=== PATIENT | male | born 1970 | race Caucasian/White ===

== ENCOUNTER 2024-12-16 13:12 | Day surgery (SDC) | payer BC ==
--- NOTE | 2024-12-09 10:18 | ELECTROCARDIOGRAPH REPORT ---
[facility] Test Date: 2024-12-09 Test Time: 10:16:42 Pat Name: FORD TRAMMELL Department: PSYCHIATRIC-PRE-OP Room: Gender: M [employer] Director: : 1970 Requested By: BLADIMIR MARIN Order Number: [id number] Reading MD: Dr. SANDRA Oconnor Measurements Intervals [place] Rate: 68 P: 72 MA: 217 QRS: -38 QRSD: 142 T: 58 QT: 424 QTc: 451 Interpretive Statements Sinus rhythm Prolonged MA interval Right bundle branch block Baseline wander in lead(s) V1,V2 Electronically Signed On 12-09-2024 18:20:[address] SANDRA Oconnor Please click the below link to view image of tracing.
[2024-12-09 10:19] LABS: MEAN PLATELET VOLUME 6.9 FL (7.4-10.4); RED CELL DISTRIBUTION WIDTH 12.6 % (11.5-14.5)
[2024-12-09 10:36] LABS: CREATININE 1.33 MG/DL (0.60-1.10); TOTAL CARBON DIOXIDE 31.8 MMOL/L (24-32); eGFR 56 ML/MIN
[~2024-12-16] VITALS: Ht 180.3 cm; Wt 86.7 kg
[2024-12-16] VITALS (18 sets, daily range): BP systolic 92–126; BP diastolic 64–90; PULSE 55–78; RESP 11–17; TEMP 97.4; O2SAT 16–99
[~2024-12-16 13:12] MED LIST: BUPIVAcaine/PF 2.5mg/ml (0.25%) 10ml vial ONE; LIDOcaine 1% 30ml preserv. free vial ONE; NO HOME MEDS
[2024-12-16] MEDS: gentamicin inj 400 MG in normal saline 100ml IV soln 90 ML IV ONE (14:10)
[2024-12-16] MEDS: ringers solution, lacted 1,000 ML IV SCH (14:10)
[2024-12-16] MEDS: clindamycin-Cleocin 900mg/D5W 50 ML IV ONE (14:10)
[2024-12-16] MEDS ORDERED: fentaNYL/PF 50MCG/1 ML 2ML syringe ONE (16:24)
[2024-12-16] MEDS ORDERED: midazolam 1 mg/ML 2ml injection ONE (16:24)
[2024-12-16] MEDS ORDERED: propofol inj 20 ML IV ONE (16:25)
[2024-12-16] MEDS ORDERED: rocuronium 10mg/ml inj IV ONE (16:25)
[2024-12-16] MEDS ORDERED: ondansetron/PF 4mg/2ml inj IV PRN (16:55)
[2024-12-16] MEDS ORDERED: hydrALAZINE 20mg/ml inj. IV PRN ×2 (16:55→17:00)
[2024-12-16] MEDS ORDERED: HYDROmorphone/PF 0.2 MG/ML SYRINGE IV PRN ×2 (16:55)
[2024-12-16] MEDS ORDERED: ringers solution, lacted 1,000 ML IV SCH ×2 (16:55→17:00)
[2024-12-16] MEDS ORDERED: labetalol 20mg/4ml (5mg/ml) syringe IV PRN ×2 (16:55→17:00)
[2024-12-16] MEDS ORDERED: acetaminophen 1,000mg/100ml IV 100 ML IV PRN (16:55)
[2024-12-16] MEDS ORDERED: morphine 4 MG/ML inj SYRINge IV PRN ×4 (16:55→17:00)
[2024-12-16] MEDS ORDERED: ondansetron/PF 4mg/2ml inj ONE (17:21)
[2024-12-16] MEDS ORDERED: dexamethasone sod phosphate 4mg/ml inj. ONE (17:22)
[2024-12-16] MEDS ORDERED: glycopyrrolate 0.2mg/ml inj ONE (17:32)
[2024-12-16] MEDS: ondansetron/PF 4mg/2ml inj IV PRN (17:48)
--- NOTE | 2024-12-16 17:50 | OPERATIVE REPORT ---
Operative Report Providers to CC CC: RODRIGUEZ MARIN MD ~ Date of Procedure: Dec 16, 2024 Pre-Operative Diagnosis: Umbilical hernia, right inguinal hernia Post-Operative Diagnosis SAME as PRE-Op Procedure Performed 1 cm umbilical hernia repair Robotic assisted, laparoscopic right inguinal hernia repair with mesh Surgeon: Rodriguez Marin MD FACS Retaining Room Cutter None Anesthesiologist: Parveen Devries Type of Anesthesia: General Findings: Fairly large indirect right inguinal hernia 1 cm umbilical hernia Wound class I Complications None Prosthetics\Implants used: Extra-large right Dextile mesh Estimated Blood Loss: Minimal Specimen Removed: None Description of Procedure: Patient was brought to the operating room and identified by the nursing staff and the attending physician. Patient was placed supine and general anesthesia was induced. Patient's abdomen was prepped and draped in standard sterile fashion. Preoperative antibiotics were given. Supraumbilical incision was made to allow for standard [place]a entry technique. Laparoscope was inserted after insufflation. Bilateral, 8.5 mm robotic trochars were placed under laparoscopic guidance following administration of local anesthetic. The [employer] robotic arm was docked to the patient and instruments placed intra-abdominally under laparoscopic visualization. The left hemipelvis was examined and showed no evidence of left inguinal hernia. Preperitoneal flap was created and carried down to the symphysis pubis. The retropubic space of [place] was developed and the bladder swept medially. Dissection was carried out laterally until an indirect right inguinal hernia sac was identified. This was fairly large in size. Hernia sac was completely mobilized and reduced. Peritoneum was completely dissected away from the cord structures The critical view of the myopectineal orifice was achieved. Dissection was carried out laterally to allow space for mesh deployment. An extra-large Dextile mesh and suture was passed intra-abdominally. Mesh was laid in the preperitoneal space covering both indirect, direct, and potential femoral and obturator hernias. Mesh laid without wrinkles or folds. 3 tacking sutures using 0 Ethibond were used to fix the mesh at the symphysis pubis, rectus abdominis, and just anterior to the anterior superior iliac spine. The peritoneal rent was then closed with running, 2/0, absorbable locking suture. [place] were retrieved. Abdomen was deflated and secondary trochars removed. Fascia at the umbilical port site was closed with 0 Vicryl sutures. Skin incisions were closed with 4-0 Monocryl sutures in a subcuticular fashion. Sterile dressings were applied. Patient was awakened and taken to the [facility] the[facility] care unit in stable condition. Counts repoted as correct: Yes RORDIGUEZ MARIN MD Dec 16, 2024 17:50
[2024-12-16] MEDS: HYDROcodone/acetaminophen 5mg/325mg tablet PO PRN (19:41)
[2024-12-16] MEDS: acetaminophen 1,000mg/100ml IV 100 ML IV PRN (19:44)
== END 2024-12-16 20:13 | disposition home or self-care (01) ==
LOC: PAS 13:12
PROVIDERS: ATTEND Surgery
DX: K40.90 Unilateral inguinal hernia, without obstruction or gangrene, not specified as recurrent (principal); K42.9 Umbilical hernia without obstruction or gangrene; I44.0 Atrioventricular block, first degree; I45.10 Unspecified right bundle-branch block; R73.09 Other abnormal glucose; Z98.890 Other specified postprocedural states; Z88.0 Allergy status to penicillin
CPT/HCPCS: 36415; 49591; 49650; 80053; 82948; 85025; 93005; C1781; J0131; J1100; J1580; J2003; J2250; J2405; J2704; J2710; J3010; J3490; J7030; J7120; S2900; Z7506; Z7508; Z7512; A4215; A4618